=== PATIENT | male | born 1965 | race Caucasian/White ===

== ENCOUNTER 2019-09-26 09:00 | Inpatient (IN) ==
[2019-09-26 13:48] LABS: BUN/Creatinine Ratio 19 (6-26); Blood Urea Nitrogen 14 mg/dL (6-20); Calcium 9.5 mg/dL (8.6-10.3); Carbon Dioxide 28 mEq/L (23-29); Chloride 107 mEq/L (98-107); Glucose 112 mg/dL (70-105); Osmolality,Calculated 295 (280-300); Potassium 3.9 mEq/L (3.5-5.1); Sodium 142 mEq/L (136-145); eGFR For African Americans > 60 (> 60); eGFR For Non-African Americans > 60 (> 60)
[2019-09-26] MEDS: *HR* Rivaroxaban 10 MG TABLET PO SCH (16:06)
[2019-09-27] MEDS: hydroCHLOROthiazide 25 MG TABLET PO SCH (09:12)
[2019-09-27] MEDS: Valsartan 80 MG TABLET PO SCH (09:12)
[2019-09-27] MEDS: Metoprolol XL (24 HR) Succ 25 MG TAB.ER.24H PO SCH (09:12)
[2019-09-27] MEDS: *HR* Rivaroxaban 10 MG TABLET PO SCH (16:54)
[2019-09-28] MEDS: Valsartan 80 MG TABLET PO SCH (07:59)
[2019-09-28] MEDS: hydroCHLOROthiazide 25 MG TABLET PO SCH (07:59)
[2019-09-28] MEDS: Metoprolol XL (24 HR) Succ 25 MG TAB.ER.24H PO SCH (08:01)
[2019-09-28] MEDS ORDERED: 0.9 % Sodium Chloride 500 ML IVC ONE (09:47)
[2019-09-28 09:54] VITALS: BP 116/87
[2019-09-28] MEDS: *HR* Midazolam HCl 5 MG/5 ML VIAL IVP PRN ×2 (10:15→10:22)
[2019-09-28] MEDS: *HR* FentaNYL (PF) 100 MCG/2 ML VIAL IVP PRN ×2 (10:18→10:22)
== END 2019-09-28 12:35 | disposition home or self-care (01) | DRG 310 ==
LOC: 2NENU
PROVIDERS: ADMIT Internal Medicine Clinical Cardiac Electrophysiology; ATTEND Internal Medicine Clinical Cardiac Electrophysiology

== ENCOUNTER 2019-11-28 07:13 | Inpatient (IN) ==
[2019-11-28] MEDS: 0.9 % Sodium Chloride 1,000 ML IVC SCH (08:17)
[2019-11-28] MEDS ORDERED: *HR* Heparin 10,000 UNIT/10 ML VIAL ONE (09:26)
[2019-11-28] MEDS ORDERED: Heparin 1,000 UNITS/500 mL 500 ML ONE (09:26)
[2019-11-28] MEDS ORDERED: 0.9 % Sodium Chloride 1,000 ML ONE (09:26)
[2019-11-28] MEDS ORDERED: ISOVUE-370 200 ML INFUS..BTL ONE (09:27)
[2019-11-28] MEDS ORDERED: Nitroglycerin 1,000 MCG/10 ML VIAL IV ONE (09:27)
[2019-11-28] MEDS ORDERED: *HR* FentaNYL (PF) 100 MCG/2 ML VIAL ONE (09:38)
[2019-11-28] MEDS ORDERED: *HR* Midazolam HCl 2 MG/2 ML VIAL ONE (09:38)
[2019-11-28] MEDS: Apixaban 5 MG TABLET PO SCH (22:28)
[2019-11-29] MEDS: Apixaban 5 MG TABLET PO SCH ×2 (09:01→20:32)
[2019-11-29] MEDS: 0.9 % Sodium Chloride 1,000 ML IVC SCH (09:02)
[2019-11-29] MEDS: Metoprolol XL (24 HR) Succ 25 MG TAB.ER.24H PO SCH (09:02)
[2019-11-29 10:01] LABS: BUN/Creatinine Ratio 17 (6-26); Blood Urea Nitrogen 13 mg/dL (6-20); Calcium 9.3 mg/dL (8.6-10.3); Carbon Dioxide 26 mEq/L (23-29); Chloride 105 mEq/L (98-107); Glucose 154 mg/dL (70-105); Osmolality,Calculated 287 (280-300); Potassium 4.1 mEq/L (3.5-5.1); Sodium 137 mEq/L (136-145); eGFR For African Americans > 60 (> 60); eGFR For Non-African Americans > 60 (> 60)
[2019-11-29 13:41] LABS: Basophils # 0.1 K/mcL (0.0-0.2); Basophils % 0.8 %; Eosinophils # 0.1 K/mcL (0.0-0.6); Eosinophils % 1.6 %; Hematocrit 46.1 % (37.5-50.1); Hemoglobin 15.3 g/dL (12.9-16.9); Immature Granulocytes % 0.2 % (0-4); Lymphocytes # 2.5 K/mcL (0.6-4.6); Lymphocytes % 40.4 %; Mean Corpuscular HGB Conc 33.2 g/dL (31.6-35.5); Mean Corpuscular Hemoglobin 28.2 pg (28.0-33.3); Mean Corpuscular Volume 85.1 fL (83.0-100.0); Mean Platelet Volume 10.2 fL (9.4-12.4); Monocytes # 0.6 K/mcL (0.0-1.3); Monocytes % 9.5 %; Neutrophils # 2.9 K/mcL (1.6-8.9); Platelet Count 191 K/mcL (140-400); Red Blood Count 5.42 M/mcL (4.19-5.50); Red Cell Distribution Width 13.2 % (11.5-14.5); Segmented Neutrophils % 47.5 %; White Blood Count 6.1 K/mcL (4.3-11.1)
[2019-11-30] MEDS: Apixaban 5 MG TABLET PO SCH ×2 (08:08→23:08)
[2019-11-30] MEDS: Metoprolol XL (24 HR) Succ 25 MG TAB.ER.24H PO SCH (08:08)
[2019-11-30] MEDS: 0.9 % Sodium Chloride 1,000 ML IVC SCH (08:10)
[2019-12-01] MEDS: Apixaban 5 MG TABLET PO SCH (09:23)
[2019-12-01] MEDS: 0.9 % Sodium Chloride 1,000 ML IVC SCH (09:24)
[2019-12-01] MEDS ORDERED: 0.9 % Sodium Chloride 500 ML IVC ONE (09:51)
[2019-12-01] MEDS ORDERED: Lidocaine Viscous Oral Soln 15 ML SOLUTION MM PRN (09:51)
[2019-12-01] MEDS: *HR* FentaNYL (PF) 100 MCG/2 ML VIAL IVP PRN ×2 (10:25→10:40)
[2019-12-01] MEDS: *HR* Midazolam HCl 5 MG/5 ML VIAL IVP PRN ×4 (10:25→10:45)
[2019-12-01 11:53] VITALS: BP 95/60
== END 2019-12-01 14:15 | disposition home or self-care (01) | DRG 287 ==
LOC: 2NENU 07:13 → INVDIALAB 07:13 → 2NENU 21:27
PROVIDERS: ADMIT Internal Medicine Cardiovascular Disease; ATTEND Internal Medicine Cardiovascular Disease

== ENCOUNTER 2020-07-25 05:02 | Inpatient (IN) ==
[2020-07-25] MEDS ORDERED: Aspirin 81 MG TAB.CHEW PO ONE (05:14)
[2020-07-25] MEDS ORDERED: *HR* FentaNYL (PF) 100 MCG/2 ML VIAL IVP ONE (05:31)
[2020-07-25 05:35] LABS: Basophils % 0.7 %; Eosinophils # 0.1 K/mcL (0.0-0.6); Eosinophils % 1.3 %; Hematocrit 49.2 % (37.5-50.1); Hemoglobin 15.8 g/dL (12.9-16.9); INR 1.2; Immature Granulocytes % 0.3 % (0-4); Lymphocytes # 2.1 K/mcL (0.6-4.6); Lymphocytes % 35.9 %; Mean Corpuscular HGB Conc 32.1 g/dL (31.6-35.5); Mean Corpuscular Hemoglobin 28.2 pg (28.0-33.3); Mean Corpuscular Volume 87.7 fL (83.0-100.0); Mean Platelet Volume 10.4 fL (9.4-12.4); Monocytes # 0.6 K/mcL (0.0-1.3); Monocytes % 10.4 %; Neutrophils # 3.1 K/mcL (1.6-8.9); Nucleated Red Blood Cells 0.3 /100 WBC (0); Platelet Count 209 K/mcL (140-400); Prothrombin Time 13.5 Seconds (9.4-12.1); Red Blood Count 5.61 M/mcL (4.19-5.50); Segmented Neutrophils % 51.4 %; White Blood Count 5.9 K/mcL (4.3-11.1)
[2020-07-25 05:38] LABS: Activated Partial Thrombo Time 30.6 Seconds (26.0-36.0)
[2020-07-25 05:46] LABS: BUN/Creatinine Ratio 23 (6-26); Blood Urea Nitrogen 14 mg/dL (6-20); Calcium 9.1 mg/dL (8.6-10.3); Carbon Dioxide 26 mEq/L (23-29); Chloride 108 mEq/L (98-107); Glucose 120 mg/dL (70-105); Osmolality,Calculated 294 (280-300); Potassium 4.7 mEq/L (3.5-5.1); Sodium 141 mEq/L (136-145); eGFR For African Americans > 60 (> 60); eGFR For Non-African Americans > 60 (> 60)
[2020-07-25 05:47] LABS: Troponin I < 0.03 ng/mL (< 0.04)
[2020-07-25] MEDS ORDERED: *HR* Heparin 5,000 UNIT/ML VIAL IVP ONE (06:11)
[2020-07-25] MEDS ORDERED: *HR* Heparin 5,000 UNIT/ML VIAL IVP PRN ×2 (06:11)
[2020-07-25] MEDS ORDERED: Heparin 25,000UNIT/250ML 1/2NS 25,000 UNIT/250 ML IV.SOLN IVC SCH (06:15)
[2020-07-25 06:47] LABS: Heparin anti-factor XA UFH 0.52 IU/mL (0.30-0.70)
[2020-07-25] MEDS ORDERED: Naloxone 0.4 MG/ML INJ IVP PRN (07:26)
[2020-07-25] MEDS ORDERED: Ondansetron 4 MG/2 ML VIAL IVP PRN (07:26)
[2020-07-25] MEDS ORDERED: 0.9 % Sodium Chloride 1,000 ML IVC SCH (07:30)
[2020-07-25 07:54] LABS: Hemoglobin 15.2 g/dL (12.9-16.9); Mean Corpuscular HGB Conc 31.7 g/dL (31.6-35.5); Mean Corpuscular Hemoglobin 27.7 pg (28.0-33.3); Mean Corpuscular Volume 87.4 fL (83.0-100.0); Mean Platelet Volume 10.1 fL (9.4-12.4); Platelet Count 198 K/mcL (140-400); Red Blood Count 5.49 M/mcL (4.19-5.50)
[2020-07-25 08:16] LABS: Adenovirus Not Detected (Not Detect); Bordetella Pertussis Not Detected (Not Detect); Chlamydophila pneumoniae Not Detected (Not Detect); Coronavirus 229E Not Detected (Not Detect); Coronavirus HKU1 Not Detected (Not Detect); Coronavirus NL63 Not Detected (Not Detect); Coronavirus OC43 Not Detected (Not Detect); Human Metapneumovirus Not Detected (Not Detect); Human Rhinovirus/Enterovirus Not Detected (Not Detect); Influenza A Subtype 2009 H1 Not Detected (Not Detect); Influenza B Not Detected (Not Detect); Mycoplasma pneumoniae Not Detected (Not Detect); Parainfluenza Virus 1 Not Detected (Not Detect); Parainfluenza Virus 2 Not Detected (Not Detect); Parainfluenza Virus 3 Not Detected (Not Detect); Parainfluenza Virus 4 Not Detected (Not Detect); Respiratory Syncytial Virus Not Detected (Not Detect); SARS-CoV-2 Not Detected (Not Detect)
[2020-07-25] MEDS ORDERED: Nitroglycerin 0.4 MG TAB.SUBL SL PRN (08:43)
[2020-07-25] MEDS: Apixaban 5 MG TABLET PO SCH (20:06)
[2020-07-26 08:50] LABS: Basophils # 0.1 K/mcL (0.0-0.2); Basophils % 0.6 %; Eosinophils # 0.1 K/mcL (0.0-0.6); Eosinophils % 1.6 %; Hematocrit 48.9 % (37.5-50.1); Hemoglobin 15.7 g/dL (12.9-16.9); Immature Granulocytes % 0.3 % (0-4); Lymphocytes # 2.3 K/mcL (0.6-4.6); Lymphocytes % 29.6 %; Mean Corpuscular HGB Conc 32.1 g/dL (31.6-35.5); Mean Corpuscular Hemoglobin 28.3 pg (28.0-33.3); Mean Corpuscular Volume 88.3 fL (83.0-100.0); Monocytes # 0.7 K/mcL (0.0-1.3); Monocytes % 8.7 %; Neutrophils # 4.6 K/mcL (1.6-8.9); Platelet Count 210 K/mcL (140-400); Red Blood Count 5.54 M/mcL (4.19-5.50); Red Cell Distribution Width 13.2 % (11.5-14.5); Segmented Neutrophils % 59.2 %; White Blood Count 7.7 K/mcL (4.3-11.1)
[2020-07-26 09:07] LABS: BUN/Creatinine Ratio 30 (6-26); Blood Urea Nitrogen 20 mg/dL (6-20); Carbon Dioxide 24 mEq/L (23-29); Chloride 108 mEq/L (98-107); Glucose 138 mg/dL (70-105); Osmolality,Calculated 293 (280-300); Potassium 4.3 mEq/L (3.5-5.1); Sodium 139 mEq/L (136-145); eGFR For African Americans > 60 (> 60); eGFR For Non-African Americans > 60 (> 60)
[2020-07-26] MEDS: Apixaban 5 MG TABLET PO SCH ×2 (09:43→22:27)
[2020-07-27 06:18] LABS: Basophils % 0.6 %; Eosinophils # 0.1 K/mcL (0.0-0.6); Eosinophils % 1.4 %; Hematocrit 48.6 % (37.5-50.1); Hemoglobin 15.3 g/dL (12.9-16.9); Immature Granulocytes % 0.3 % (0-4); Lymphocytes # 2.1 K/mcL (0.6-4.6); Lymphocytes % 32.3 %; Mean Corpuscular HGB Conc 31.5 g/dL (31.6-35.5); Mean Corpuscular Hemoglobin 27.6 pg (28.0-33.3); Mean Corpuscular Volume 87.7 fL (83.0-100.0); Mean Platelet Volume 10.8 fL (9.4-12.4); Monocytes # 0.6 K/mcL (0.0-1.3); Monocytes % 8.6 %; Neutrophils # 3.7 K/mcL (1.6-8.9); Platelet Count 205 K/mcL (140-400); Red Blood Count 5.54 M/mcL (4.19-5.50); Red Cell Distribution Width 13.1 % (11.5-14.5); Segmented Neutrophils % 56.8 %; White Blood Count 6.5 K/mcL (4.3-11.1)
[2020-07-27 06:52] LABS: BUN/Creatinine Ratio 26 (6-26); Blood Urea Nitrogen 16 mg/dL (6-20); Calcium 8.9 mg/dL (8.6-10.3); Carbon Dioxide 26 mEq/L (23-29); Chloride 108 mEq/L (98-107); Glucose 112 mg/dL (70-105); Osmolality,Calculated 290 (280-300); Potassium 4.5 mEq/L (3.5-5.1); Sodium 139 mEq/L (136-145); eGFR For African Americans > 60 (> 60); eGFR For Non-African Americans > 60 (> 60)
[2020-07-27] MEDS: Apixaban 5 MG TABLET PO SCH (09:34)
[2020-07-27] MEDS ORDERED: Lidocaine Viscous Oral Soln 15 ML SOLUTION MM PRN (13:18)
[2020-07-27] MEDS ORDERED: 0.9 % Sodium Chloride 500 ML IVC ONE (13:18)
[2020-07-27] MEDS: *HR* Midazolam HCl 5 MG/5 ML VIAL IVP PRN ×3 (13:40→13:57)
[2020-07-27] MEDS: *HR* FentaNYL (PF) 100 MCG/2 ML VIAL IVP PRN ×3 (13:40→13:57)
[2020-07-27 18:37] VITALS: BP 107/68
== END 2020-07-27 21:57 | disposition home or self-care (01) | DRG 309 ==
LOC: CDU 05:02 → EMEROOARM 05:02 → SUATTDRO 08:37 → CDU 09:41 → 3BNU 07-26 17:36
PROVIDERS: ADMIT Internal Medicine; ATTEND Internal Medicine